=== PATIENT | male | born 1940 | race Hispanic/Latino ===

== ENCOUNTER 2019-10-22 22:41 | Observation (INO) | payer OTHER ==
[~2019-10-22] VITALS: Ht 167.6 cm; Wt 63.4 kg
[2019-10-22 23:07] LABS: APPEARANCE,URINE Clear (CLEAR); BILIRUBIN,URINE Negative (NEGATIVE); COLOR,URINE Yellow (YELLOW); GLUCOSE, URINE (UA) Negative (NEGATIVE); KETONES,URINE Negative (NEGATIVE); LEUKOCYTE ESTERASE ,URINE Negative (NEGATIVE); NITRATE,URINE Negative (NEGATIVE); OCCULT BLOOD,URINE Negative (NEGATIVE); PH,URINE 7.5 (5.0-8.0); PROTEIN,URINE Negative (NEGATIVE); UROBILINOGEN,URINE 0.2 mg/dL (0.2-1.0)
[2019-10-22 23:26] LABS: BASOPHILS % (AUTO) 0.6 % (0.0-5.0); HEMATOCRIT 42.6 % (42-54); LYMPHOCYTES % (AUTO) 28.3 % (21.0-51.0); MEAN CORPUSCULAR HEMOGLOBIN 29.8 pg (27.0-33.0); MEAN CORPUSCULAR HGB CONC 33.9 g/dL (32.0-36.0); MEAN CORPUSCULAR VOLUME 87.8 fL (79-99); MONOCYTES % (AUTO) 5.3 % (3.0-13.0); NEUTROPHILS % (AUTO) 61.8 % (40.0-77.0); NUCLEATED RED BLOOD CELLS 0.1 % (0.0-0.19); PLATELET COUNT (AUTO) 234 K/uL (130-400); RED BLOOD CELL COUNT(AUTO) 4.85 MIL/uL (4.50-6.20); WHITE BLOOD COUNT (AUTO) 8.9 K/uL (4.8-10.8)
[2019-10-22 23:36] LABS: INR 0.95 (0.85-1.15); PARTIAL THROMBOPLASTIN TIME 25.9 SEC (26.3-35.5); POTASSIUM 3.8 mmol/L (3.5-5.1)
[2019-10-22 23:41] LABS: ALBUMIN 3.6 g/dL (3.5-5.0); BILIRUBIN,TOTAL 0.3 mg/dL (0.2-1.0); TOTAL PROTEIN, SERUM 7.4 g/dL (6.0-8.3)
[2019-10-23] MEDS ORDERED: SODIUM CHLORIDE 0.9% 1000ML 1,000 ML IV ONE (00:13)
[2019-10-23] MEDS ORDERED: IOHEXOL-350 75 ML VIAL IV ONE (00:38)
[2019-10-23] MEDS ORDERED: ASPIRIN 325 MG TABLET ONE (06:29)
[2019-10-23] MEDS ORDERED: ONDANSETRON HCL 4 MG/2 ML VIAL IVP PRN (06:45)
[2019-10-23] MEDS ORDERED: ACETAMINOPHEN 325 MG TAB PO PRN (06:45)
[2019-10-23 08:30] VITALS: BP 157/71
[2019-10-23] MEDS ORDERED: NAPROXEN 250 MG TAB PO PRN (10:30)
[2019-10-23] MEDS ORDERED: FINA5TAB41 PO (10:30)
[2019-10-23] MEDS ORDERED: SIMV10TA97 PO (10:30)
[2019-10-23] MEDS ORDERED: NAPR-1192 PO (10:30)
[2019-10-23] MEDS ORDERED: TAMS-1 PO (10:30)
[2019-10-23 11:00] VITALS: BP 142/70
[2019-10-23] MEDS ORDERED: HYDRALAZINE HCL 20 MG/ML VIAL IV PRN (13:45)
[2019-10-23 15:24] LABS: CREATINE KINASE, TOTAL 166 U/L (21-232); MYOGLOBIN 95 ng/mL (10-92); TROPONIN I < 0.04 ng/mL (0.00-0.06)
[2019-10-23 15:30] VITALS: BP 142/70
[2019-10-23] MEDS: TAMSULOSIN HCL 0.4 MG CAP.ER.24H PO SCH (17:30)
[2019-10-23 20:00] VITALS: BP 158/69
[2019-10-23] MEDS: FINASTERIDE 5 MG TABLET PO SCH (21:24)
[2019-10-23] MEDS: SIMVASTATIN 10 MG TABLET PO SCH (21:24)
[2019-10-24] VITALS (7 sets, daily range): BP systolic 128–151; BP diastolic 64–73
[2019-10-24 05:20] LABS: HEMATOCRIT 39.4 % (42-54); MEAN CORPUSCULAR VOLUME 88.2 fL (79-99); PLATELET COUNT (AUTO) 221 K/uL (130-400); RED BLOOD CELL COUNT(AUTO) 4.46 MIL/uL (4.50-6.20); RED CELL DISTRIBUTION WIDTH 13.7 % (11.0-15.5); WHITE BLOOD COUNT (AUTO) 8.1 K/uL (4.8-10.8)
[2019-10-24 05:29] LABS: POTASSIUM 3.9 mmol/L (3.5-5.1)
[2019-10-24] MEDS: ASPIRIN 325MG EC TAB 325 MG TABLET.DR PO SCH (09:38)
--- NOTE | 2019-10-24 09:58 | NUR ---
DR CINTRON IN TO SEE PT ORDERS RECEIVED FOR 2D ECHO WITH BUBBLE STUDY AND MRI BRAIN
--- NOTE | 2019-10-24 15:06 | NUR ---
[id number] had pt sign IM Letter,daughter at bedside.. Faxed to [phone] and placed in chart under consent tab.
--- NOTE | 2019-10-24 17:09 | NUR ---
DC PLAN PER PATIENT, IN INDEPENDENT, LIVES WITH SPOUSE AND DAUGHTER STAYS WITH THEM FROM TIME TO TIME, NO EQUIPMENT, NO PROVIDER, AND FEELS SAFE TO RETURN HOME. Addendum: 10/24/19 at 1710 by COLTON LIU RN CM Amended: Links added.
[2019-10-24] MEDS: TAMSULOSIN HCL 0.4 MG CAP.ER.24H PO SCH (17:53)
[2019-10-24] MEDS: SIMVASTATIN 10 MG TABLET PO SCH (20:49)
[2019-10-24] MEDS: FINASTERIDE 5 MG TABLET PO SCH (20:49)
[2019-10-25 04:42] VITALS: BP 113/59
[2019-10-25 05:11] LABS: HEMOGLOBIN A1C 5.6 % (4.0-6.0)
[2019-10-25 05:14] LABS: POTASSIUM 3.9 mmol/L (3.5-5.1)
[2019-10-25 05:16] LABS: BASOPHILS % (AUTO) 0.5 % (0.0-5.0); EOSINOPHILS % (AUTO) 2.6 % (0.0-8.0); HEMATOCRIT 39.1 % (42-54); LYMPHOCYTES % (AUTO) 20.6 % (21.0-51.0); MEAN CORPUSCULAR HEMOGLOBIN 30.6 pg (27.0-33.0); MEAN CORPUSCULAR HGB CONC 34.5 g/dL (32.0-36.0); MEAN CORPUSCULAR VOLUME 88.6 fL (79-99); MONOCYTES % (AUTO) 6.1 % (3.0-13.0); NEUTROPHILS % (AUTO) 70.2 % (40.0-77.0); PLATELET COUNT (AUTO) 211 K/uL (130-400); RED BLOOD CELL COUNT(AUTO) 4.41 MIL/uL (4.50-6.20); RED CELL DISTRIBUTION WIDTH 13.5 % (11.0-15.5); WHITE BLOOD COUNT (AUTO) 8.4 K/uL (4.8-10.8)
[2019-10-25 07:45] VITALS: BP 155/73
[2019-10-25] MEDS: ASPIRIN 325MG EC TAB 325 MG TABLET.DR PO SCH (09:35)
[2019-10-25 11:15] VITALS: BP 144/67
[2019-10-25] MEDS ORDERED: ASPI-891 PO (12:11)
[2019-10-25] MEDS ORDERED: MECLIZINE HCL 25 MG TABLET PO SCH (14:00)
[2019-10-25 16:15] VITALS: BP 154/84
--- NOTE | 2019-10-25 17:45 | NUR ---
PATIENT GIVEN DISCHARGE INSTRUCTIONS AND VERBALIZED UNDERSTANDING , TELEMETRY NOTIFIED OF DISCHARGE STATUS AND MONITOR UNIT REMOVED, IV REMOVED WITH CATHETER INTACT AND PRESSURE HELD TILL BLEEDING STOPPED AND SITE DRESSED WITH BAND-AID, REVIEWED NEW MEDICATION ASPIRIN 325 MG PO DAILY, AND TO FOLLOW-UP WITH HIS PCP IN 1-3 DAYS , NO QUESTIONS OR CONCERNS AT THIS TIME , PATIENT LEFT WITH FAMILY VIA WHEELCHAIR FOR HOME
== END 2019-10-25 17:50 | disposition home or self-care (01) ==
LOC: EDH 22:41 → EDHIP 10-23 06:14 → OBSVTOIN 10-23 06:14 → INTOOBSV 10-23 06:14 → 3AH 10-23 08:33
PROVIDERS: ADMIT Internal Medicine Critical Care Medicine; ATTEND Internal Medicine Critical Care Medicine
DX: G45.9 Transient cerebral ischemic attack, unspecified (principal); N40.0 Benign prostatic hyperplasia without lower urinary tract symptoms; E78.5 Hyperlipidemia, unspecified; J61 Pneumoconiosis due to asbestos and other mineral fibers; K44.9 Diaphragmatic hernia without obstruction or gangrene; R42 Dizziness and giddiness; E78.00 Pure hypercholesterolemia, unspecified; Z87.891 Personal history of nicotine dependence; Z79.899 Other long term (current) drug therapy
CPT/HCPCS: 36415 ×4; 70450; 70496; 70498; 70551; 71045; 71250; 74176; 80048 ×2; 80053; 81003; 82550 ×2; 83036; 83874; 83880; 84484 ×2; 85025 ×2; 85027; 85610; 85730; 93005 ×2; 93306; 99285; G0378 ×60; J7030; Q9967

== ENCOUNTER → 2019-11-04 | Outpatient (CLI) | payer OTHER ==
[~2019-11-04] MED LIST: ASPI-891 PO; FINA5TAB41 PO; NAPR-1192 PO; SIMV10TA97 PO; TAMS-1 PO
== END | disposition home or self-care (01) ==
LOC: RAH 10:33
PROVIDERS: ATTEND Family Medicine
DX: I65.23 Occlusion and stenosis of bilateral carotid arteries (principal)
CPT/HCPCS: 93880

== ENCOUNTER 2023-04-10 11:36 | Observation (INO) | payer OTHER ==
[~2023-04-10] VITALS: Ht 162.6 cm; Wt 63.0 kg
[2023-04-10] MEDS ORDERED: DEXAMETHASONE SOD PHOSPHATE 4 MG/ML 1ML VIAL IVP ONE (12:00)
[2023-04-10] MEDS ORDERED: 0.9%NACL 1000ML 1,000 ML IV ONE ×2 (12:00→13:00)
[2023-04-10] MEDS ORDERED: DiphenhydrAMINE HCL 50 MG/ML VIAL IV ONE (12:00)
[2023-04-10] MEDS ORDERED: FAMOTIDINE 20MG VIAL IV ONE (12:00)
[2023-04-10 12:17] LABS: BASOPHILS % (AUTO) 0.3 % (0.0-5.0); EOSINOPHILS % (AUTO) 0.5 % (0.0-8.0); HEMATOCRIT 45.7 % (42-54); LYMPHOCYTES % (AUTO) 6.2 % (21.0-51.0); MEAN CORPUSCULAR HEMOGLOBIN 29.4 pg (27.0-33.0); MEAN CORPUSCULAR HGB CONC 32.8 g/dL (32.0-36.0); MEAN CORPUSCULAR VOLUME 89.4 fL (79-99); NEUTROPHILS % (AUTO) 88.2 % (40.0-77.0); PLATELET COUNT (AUTO) 303 K/uL (130-400); RED BLOOD CELL COUNT(AUTO) 5.11 MIL/uL (4.50-6.20); RED CELL DISTRIBUTION WIDTH 12.8 % (11.0-15.5); WHITE BLOOD COUNT (AUTO) 22.3 K/uL (4.8-10.8)
[2023-04-10 12:30] LABS: CREATININE 1.8 mg/dL (0.5-1.5); POTASSIUM 4.1 mmol/L (3.5-5.1)
[2023-04-10] MEDS ORDERED: ONDANSETRON 4MG INJ IVP ONE (12:30)
[2023-04-10 12:34] LABS: ALBUMIN 4.1 g/dL (3.5-5.0); TOTAL PROTEIN, SERUM 8.8 g/dL (6.0-8.3)
[2023-04-10 13:12] LABS: APPEARANCE,URINE CLEAR (CLEAR); BILIRUBIN,URINE NEGATIVE (NEGATIVE); COLOR,URINE YELLOW (YELLOW); GLUCOSE, URINE (UA) NEGATIVE (NEGATIVE); KETONES,URINE NEGATIVE (NEGATIVE); LEUKOCYTE ESTERASE ,URINE NEGATIVE Leu/uL (NEGATIVE); NITRATE,URINE NEGATIVE (NEGATIVE); OCCULT BLOOD,URINE LARGE (NEGATIVE); PH,URINE 5.5 (5.0-8.0); PROTEIN,URINE 50 mg/dL (NEGATIVE); UROBILINOGEN,URINE 0.2 mg/dL (0.2-1.0)
[2023-04-10 13:18] LABS: HYALINE CASTS, URINE 26-50 /LPF (0-1 /LPF); MUCUS,URINE RARE LPF (None Seen); RBC,URINE 0-1 /HPF (0-1); WBC,URINE 0-1 /HPF (0-1)
[2023-04-10] MEDS ORDERED: CLONIDINE HCL 0.1 MG TABLET PO PRN (15:00)
[2023-04-10] MEDS ORDERED: LACTULOSE 20 GM/30 ML UDCUP PO PRN (15:00)
[2023-04-10] MEDS ORDERED: HYDROCODONE/ACETAMINOPHEN 5/325 MG TAB PO PRN (15:00)
[2023-04-10] MEDS ORDERED: BENZOCAINE/MENTH/CETYLPYRD CL 1 EACH LOZENGE MM PRN (15:00)
[2023-04-10] MEDS ORDERED: GUAIFENESIN-DM 200/20 MG 10 ML PO PRN (15:00)
[2023-04-10] MEDS ORDERED: DIPHENHYDRAMINE HCL 25 MG CAPSULE PO PRN (15:00)
[2023-04-10] MEDS ORDERED: ALPRAZOLAM 0.25 MG TABLET PO PRN (15:00)
[2023-04-10] MEDS ORDERED: BENZONATATE 100 MG CAPSULE PO PRN (15:00)
[2023-04-10] MEDS ORDERED: ACETAMINOPHEN 325 MG TAB PO PRN ×2 (15:00)
[2023-04-10] MEDS ORDERED: ONDANSETRON 4MG INJ IV PRN (15:00)
[2023-04-10] MEDS ORDERED: IPRATROPIUM/ALBUTEROL SULFATE 3 ML SOLUTION IH PRN (15:00)
[2023-04-10] MEDS: FAMOTIDINE 20MG TAB PO SCH (16:13)
[2023-04-10] MEDS: 0.9%NACL 1000ML 1,000 ML IV SCH (16:13)
[2023-04-10 16:30] VITALS: BP 163/78
[2023-04-10] MEDS ORDERED: AEC81 PO (17:14)
[2023-04-10] MEDS ORDERED: LISI5TAB21 PO (17:14)
[2023-04-10 19:19] VITALS: BP 149/80
[2023-04-10] MEDS ORDERED: CEFTRIAXONE 2GM VIAL IVPB SCH (20:30)
[2023-04-10] MEDS ORDERED: SIMVASTATIN 10 MG TABLET PO SCH (21:00)
[2023-04-10 23:11] VITALS: BP 118/73
[2023-04-11 03:36] VITALS: BP 113/64
[2023-04-11] MEDS: 0.9%NACL 1000ML 1,000 ML IV SCH (03:42)
[2023-04-11 04:34] LABS: BASOPHILS % (AUTO) 0.1 % (0.0-5.0); HEMATOCRIT 37.7 % (42-54); LYMPHOCYTES % (AUTO) 4.9 % (21.0-51.0); MEAN CORPUSCULAR HEMOGLOBIN 29.5 pg (27.0-33.0); MEAN CORPUSCULAR HGB CONC 32.9 g/dL (32.0-36.0); MEAN CORPUSCULAR VOLUME 89.5 fL (79-99); MONOCYTES % (AUTO) 5.4 % (3.0-13.0); PLATELET COUNT (AUTO) 210 K/uL (130-400); RED BLOOD CELL COUNT(AUTO) 4.21 MIL/uL (4.50-6.20); RED CELL DISTRIBUTION WIDTH 13.2 % (11.0-15.5); WHITE BLOOD COUNT (AUTO) 18.9 K/uL (4.8-10.8)
[2023-04-11 04:41] LABS: CREATININE 1.2 mg/dL (0.5-1.5); PHOSPHORUS 3.7 mg/dL (2.5-4.9); POTASSIUM 4.3 mmol/L (3.5-5.1); TOTAL PROTEIN, SERUM 6.4 g/dL (6.0-8.3)
[2023-04-11 08:00] VITALS: BP 147/76
[2023-04-11] MEDS: FAMOTIDINE 20MG TAB PO SCH (08:46)
[2023-04-11] MEDS ORDERED: LISINOPRIL 5 MG TABLET PO SCH (09:00)
[2023-04-11] MEDS ORDERED: ASPIRIN 81 MG EC TAB PO SCH (09:00)
[2023-04-11] MEDS ORDERED: ENOXAPARIN SODIUM 40 MG/0.4 ML SYRINGE SQ SCH (09:00)
[2023-04-11] MEDS ORDERED: FINASTERIDE 5 MG TABLET PO SCH (09:00)
[2023-04-11] MEDS ORDERED: PREDNISONE 20 MG TABLET PO SCH (09:00)
[2023-04-11 12:00] VITALS: BP 156/68
[2023-04-11] MEDS ORDERED: TAMSULOSIN HCL 0.4 MG CAP.ER.24H PO SCH (17:00)
== END 2023-04-11 13:30 | disposition home or self-care (01) ==
LOC: EDH 11:36 → EDHIP 14:36 → 4DH 16:30
PROVIDERS: ADMIT Internal Medicine Critical Care Medicine; ATTEND Internal Medicine Critical Care Medicine
DX: T63.441A Toxic effect of venom of bees, accidental (unintentional), initial encounter (principal); M62.82 Rhabdomyolysis; N17.9 Acute kidney failure, unspecified; J44.9 Chronic obstructive pulmonary disease, unspecified; I10 Essential (primary) hypertension; E78.5 Hyperlipidemia, unspecified; N40.0 Benign prostatic hyperplasia without lower urinary tract symptoms; D72.829 Elevated white blood cell count, unspecified; E78.00 Pure hypercholesterolemia, unspecified; K44.9 Diaphragmatic hernia without obstruction or gangrene; Z79.899 Other long term (current) drug therapy
CPT/HCPCS: 96361 ×2; 96365; 96375; 99285; 84484; 80053 ×2; 83880; 85025 ×2; 81001; 36415 ×2; 71045; 93005; 84145; 96372; 83735; 84100; G0378 ×22; J1200; J3490; J7030; J0696; J2405; J1100; A4600; J1650